=== PATIENT | female | born 1990 | race American Indian/Alaskan Native ===

== ENCOUNTER 2021-11-20 10:29 | Emergency (ER) | payer SELFPAY ==
[2021-11-20] MEDS ORDERED: predniSONE 20 MG TAB PO ONE (11:17)
--- NOTE | 2021-11-20 11:22 | Emergency Department Report ---
<ELYSIAJEAN-CLAUDEMANJU - Last Filed: 11/21/21 18:28> ED General Adult HPI - General Chief complaint: Pain General Stated complaint: BEE STING Time Seen by Provider: 11/20/21 10:59 Source: patient Mode of arrival: Ambulatory Limitations: No Limitations - History of Present Illness Initial comments: 31-year-old female with past medical history of asthma reports to the ER due to a bug bite to the right thigh. Patient reports rash is getting worse since her initial bite that happened 2 days ago. Patient [place] she was [place]. Patient suspects a bee however she is unsure exactly what bit her. Patient denies fever patient denies weakness patient denies chills. Patient does report that her rash is warm to touch. No other acute signs reported. Patient reports taking nothing for symptoms at this time. - Related Data Previous Rx's Medication Instructions Recorded Last Taken Type cephALEXin [Keflex] 500 mg PO Q12HR 7 Days #14 cap 11/20/21 Unknown Rx predniSONE [Deltasone] 40 mg PO QDAY 5 Days #10 tab NS 11/20/21 Unknown Rx Allergies Allergy/AdvReac Type Severity Reaction Status Date / Time No Known Allergies Allergy Verified 11/20/21 10:57 ED Review of Systems Comment: All other systems reviewed and negative Skin: rash (Right thigh), other (Insect bite to the right thigh) ED Past Medical Hx - Past Medical History Previous Medical History?: Yes Hx Asthma: Yes - Surgical History Past Surgical History?: No - Social History Smoking Status: Never Smoker - Medications Home Medications: Home Medications Medication Instructions Recorded Confirmed Last Taken Type cephALEXin [Keflex] 500 mg PO Q12HR 7 Days #14 cap 11/20/21 Unknown Rx predniSONE [Deltasone] 40 mg PO QDAY 5 Days #10 tab NS 11/20/21 Unknown Rx ED Physical Exam - General Limitations: No Limitations General appearance: alert, in no apparent distress - Head Head exam: Present: atraumatic, normocephalic - Eye Eye exam: Present: normal appearance - ENT ENT exam: Present: mucous membranes moist - Neck Neck exam: Present: normal inspection - Respiratory Respiratory exam: Present: normal lung sounds bilaterally. Absent: respiratory distress - Cardiovascular Cardiovascular Exam: Present: regular rate, normal rhythm. Absent: systolic murmur, diastolic murmur, rubs, gallop - GI/Abdominal GI/Abdominal exam: Present: soft, normal bowel sounds - Extremities Exam Extremities exam: Present: normal inspection - Back Exam Back exam: Present: normal inspection - Neurological Exam Neurological exam: Present: alert, oriented X3 - Psychiatric Psychiatric exam: Present: normal affect, normal mood - Skin Skin exam: Present: warm, dry, intact, normal color, rash, erythema (Right upper thigh anterior side. Swelling and warmth is noted around bite ashwin. The rash around the bite ashwin is is more reddened compared to the rash that is surrounding the more reddened area.), other (No abscess noted to the right thigh) ED Medical Decision Making - Medical Decision Making 31-year-old female reports to the ER due to unknown insect bite to her right upper thigh. No other acute symptoms reported On physical exam there is a reddened area with warmth and increased swelling as well as expansion of rash. Patient reports onset was [place] Patient has not taken anything for symptoms. Patient to be started on steroids to help decrease swelling and worsening of rash. Patient to be started on antibiotics due to unknown insect that bit her . As some insect bite such as spiders can cause infections. Right thigh is in early stages of cellulitis. Patient agrees with plan of care and verbalizes understanding. Patient has no known drug allergies. Vital Signs 11/20/21 13:06 Temperature 98.7 F Pulse Rate 77 Respiratory 18 Rate Blood Pressure 132/84 [Right] O2 Sat by Pulse 97 Oximetry ED Disposition Clinical Impression: Cellulitis of right thigh Disposition: 01 HOME / SELF CARE / HOMELESS Is pt being admited?: No Condition: Stable Instructions: Cellulitis, Adult, Insect Bite, Adult Prescriptions: predniSONE [Deltasone] 40 mg PO QDAY 5 Days #10 tab NS cephALEXin [Keflex] 500 mg PO Q12HR 7 Days #14 cap Referrals: [facility] [Outside] - 3-5 Days Time of Disposition: 11:32 <YANCY MAHARAJ - Last Filed: 11/22/21 16:07> ED Review of Systems ROS: Stated complaint: BEE STING Other details as noted in HPI ED Course Vital Signs 11/20/21 13:06 Temperature 98.7 F Pulse Rate 77 Respiratory 18 Rate Blood Pressure 132/84 [Right] O2 Sat by Pulse 97 Oximetry ED Medical Decision Making - Medical Decision Making Patient was managed independently by the mid level below , I was available for consult but i wasn't directly involved in the care of this patient Critical care attestation.: If time is entered above; I have spent that time in minutes in the direct care of this critically ill patient, excluding procedure time. ED Disposition Is pt being admited?: No Does the pt Need Aspirin: No
[2021-11-20 13:08] VITALS: BP 132/84
== END 2021-11-20 13:09 | disposition home or self-care (01) ==
LOC: ED 10:29
DX: S70.361A Insect bite (nonvenomous), right thigh, initial encounter (principal); L03.115 Cellulitis of right lower limb; J45.909 Unspecified asthma, uncomplicated; Z79.899 Other long term (current) drug therapy; W57.XXXA Bitten or stung by nonvenomous insect and other nonvenomous arthropods, initial encounter; Y93.89 Activity, other specified; Y92.89 Other specified places as the place of occurrence of the external cause; Y99.8 Other external cause status
CPT/HCPCS: 99282